=== PATIENT | male | born 1970 | race Caucasian/White ===

== ENCOUNTER 2016-07-10 04:03 | Emergency (ER) | payer OTHER ==
[~2016-07-10] VITALS: Ht 167.6 cm; Wt 131.1 kg
[2016-07-10 04:09] VITALS: BP_SYST 156
[2016-07-10 04:54] VITALS: BP_SYST 156
== END 2016-07-10 04:54 | disposition home or self-care (01) ==
LOC: SED 04:03
DX: N48.1 Balanitis (principal); R10.9 Unspecified abdominal pain; Z98.890 Other specified postprocedural states
CPT/HCPCS: 99283

== ENCOUNTER 2018-05-27 04:21 | Emergency (ER) | payer OTHER ==
[~2018-05-27] VITALS: Ht 167.6 cm; Wt 131.5 kg
--- NOTE | 2018-05-27 04:39 | NUR ---
Patient to ER bed 5 to gown for evaluation. Side rails up.
[2018-05-27 04:40] VITALS: BP_SYST 140
--- NOTE | 2018-05-27 04:45 | NUR ---
Patient AOx4, ambulatory, presents to ER with complaint of abscess to right posterior thigh x 3 days. Patient states pain 8/10 to site. Paitent did not medicate for pain. Denies episodes of fevers. No other symptoms or complaints.
--- NOTE | 2018-05-27 05:02 | NUR ---
DONTAE Falcon at bedside for medical evaluation.
[2018-05-27] MEDS ORDERED: SULFAMETHOXAZOLE/TRIMETHOPR DS 1 TABLET PO ONE (05:15)
[2018-05-27 05:30] VITALS: BP_SYST 140
--- NOTE | 2018-05-27 05:30 | NUR ---
Patient given written and verbal discharge instructions and verbalizes understanding. ER MD discussed with patient the results and treatment provided. Patient in stable condition. ID arm band removed. Rx of Bactrim given. Patient educated on pain management and to follow up with PMD. Pain Scale 0/10. Opportunity for questions provided and answered. Medication side effect fact sheet provided. Pt stable. Pt ambulated out of ED with steady gait accompanied by .
== END 2018-05-27 05:30 | disposition home or self-care (01) ==
LOC: SED 04:21
DX: L02.415 Cutaneous abscess of right lower limb (principal); I10 Essential (primary) hypertension
CPT/HCPCS: 87070-TC; 87186-TC; 99283

== ENCOUNTER 2021-04-28 01:38 | Emergency (ER) | payer OTHER ==
[~2021-04-28] VITALS: Ht 167.6 cm; Wt 158.8 kg
[2021-04-28 01:50] VITALS: BP_SYST 144
== END 2021-04-28 02:15 | disposition left against medical advice (07) ==
LOC: SED 01:38
DX: N50.82 Scrotal pain (principal); Z53.21 Procedure and treatment not carried out due to patient leaving prior to being seen by health care provider

== ENCOUNTER 2021-04-29 18:00 | Emergency (ER) | payer OTHER ==
[~2021-04-29] VITALS: Ht 167.6 cm; Wt 158.8 kg
[2021-04-29 18:07] VITALS: BP_SYST 144
--- NOTE | 2021-04-29 18:30 | NUR ---
PT ELOPED,UNABLE TO ASSESS PT.
== END 2021-04-29 18:30 | disposition left against medical advice (07) ==
LOC: SED 18:00
DX: N50.82 Scrotal pain (principal); Z53.21 Procedure and treatment not carried out due to patient leaving prior to being seen by health care provider

== ENCOUNTER → 2021-04-29 | Emergency (ER) | payer OTHER | END | disposition left against medical advice (07) | LOC: SED 04:35 | DX: N48.89 Other specified disorders of penis (principal); Z53.21 Procedure and treatment not carried out due to patient leaving prior to being seen by health care provider ==

== ENCOUNTER 2021-05-22 18:19 | Emergency (ER) | payer OTHER ==
[~2021-05-22] VITALS: Ht 167.6 cm; Wt 158.8 kg
[2021-05-22 18:25] VITALS: BP_SYST 143
--- NOTE | 2021-05-22 18:25 | NUR ---
Pt walked ambulatory to rm 8 and triaged.
--- NOTE | 2021-05-22 18:27 | NUR ---
Patient to ER bed 8 for evaluation. Side rails up. Report given to Kaylene ROCKWELL.
--- NOTE | 2021-05-22 18:28 | NUR ---
pt drove to er from home with complaint of penile discharge. pt has been experiencing this issue for 3 years. vs are within normal limits, patient has purulent serosangunious discharge. upon inspection of patient penis his penil head appeared eroded by severe infection. patient stated he has no issue urinating with a pain level of 9/10.
--- NOTE | 2021-05-22 18:35 | NUR ---
Dr Esparza to bedside to examine patient
[2021-05-22 19:08] LABS: BASOPHILS % (AUTO) 0.3 % (0.0-2.0); EOSINOPHILS # (AUTO) 0.1 K/uL (0.0-0.4); EOSINOPHILS % (AUTO) 1.6 % (0.0-4.0); HEMATOCRIT 40.4 % (36-54); HEMOGLOBIN 13.2 g/dL (14.0-18.0); LYMPHOCYTES % (AUTO) 21.2 % (20.5-51.5); MEAN CORPUSCULAR HEMOGLOBIN 27 pg (27-31); MEAN CORPUSCULAR HGB CONC 33 % (32-36); MEAN CORPUSCULAR VOLUME 84 fL (79.0-98.0); MONOCYTES # (AUTO) 0.9 K/uL (0.0-1.0); MONOCYTES % (AUTO) 10.1 % (1.7-9.3); NEUTROPHILS # (AUTO) 6.2 K/uL (1.8-7.7); NEUTROPHILS % (AUTO) 66.8 % (40.0-70.0); PLATELET COUNT (AUTO) 357 K/uL (130-430); WHITE BLOOD COUNT (AUTO) 9.2 K/uL (4.8-10.8)
[2021-05-22 19:09] LABS: CALCIUM 9.6 mg/dL (8.4-11.0); CREATININE 1.23 mg/dL (0.55-1.30); POTASSIUM 4.1 mmol/L (3.5-5.1)
[2021-05-22 19:14] LABS: ALBUMIN 2.9 g/dL (3.4-4.8)
[2021-05-22 19:15] VITALS: BP_SYST 143
--- NOTE | 2021-05-22 19:17 | NUR ---
ER Dr Isaias GLYNN assessed pt, but pt eloped at apx 1857 ID arm band notremoved because pt eloped.
[2021-05-22 19:32] LABS: TOTAL BILIRUBIN 0.2 mg/dL (0.0-1.0)
[2021-05-22 19:39] LABS: C-REACTIVE PROTEIN QUANT 3.9 mg/dL (0-0.5)
== END 2021-05-22 19:11 | disposition left against medical advice (07) ==
LOC: SED 18:19
DX: N49.8 Inflammatory disorders of other specified male genital organs (principal)
CPT/HCPCS: 36415; 80053; 83605; 85025; 86140; 99283

== ENCOUNTER 2021-05-30 12:13 | Emergency (ER) | payer OTHER ==
[~2021-05-30] VITALS: Ht 167.6 cm; Wt 158.8 kg
[2021-05-30 12:19] VITALS: BP_SYST 126
[2021-05-30 13:01] VITALS: BP_SYST 126
== END 2021-05-30 12:45 | disposition left against medical advice (07) ==
LOC: SED 12:13
DX: N45.4 Abscess of epididymis or testis (principal)
CPT/HCPCS: 99281

== ENCOUNTER 2021-06-04 06:04 | Emergency (ER) | payer OTHER ==
[~2021-06-04] VITALS: Ht 167.6 cm; Wt 159.2 kg
[2021-06-04 06:08] VITALS: BP_SYST 145
--- NOTE | 2021-06-04 06:45 | NUR ---
0625 PLACED ON RM4 REFUSED VS TAKEN DR MARY SPOKE TO HIM AND REDIRECTED TO GO SEE UROLOGIST ESPECIALIST IN [facility] CASE LIKE HIM HE NEES TO GO TO A [facility] FOR TREATMENT.
--- NOTE | 2021-06-04 06:48 | NUR ---
Patient given written and verbal discharge instructions and verbalizes understanding. DONTAE MARY MD discussed with patient the results and treatment provided. Patient in stable condition. Patient educated on pain management and to follow up with PMD. Pain Scale [3]. Opportunity for questions provided and answered. Medication side effect fact sheet provided.
== END 2021-06-04 06:45 | disposition home or self-care (01) ==
LOC: SED 06:04
DX: N48.89 Other specified disorders of penis (principal); N50.89 Other specified disorders of the male genital organs
CPT/HCPCS: 99281